=== PATIENT | female | born 1995 | race African-American/Black ===

== ENCOUNTER 2019-12-25 12:06 | Observation (INO) | payer SELFPAY ==
[~2019-12-25] VITALS: Ht 157.5 cm; Wt 61.2 kg
[2019-12-25] MEDS ORDERED: LACTATED RINGERS 1,000 ML IV SCH (13:26)
[2019-12-25] MEDS ORDERED: TERBUTALINE SULFATE 1MG/ML VIAL SUBCUT PRN (13:30)
[2019-12-25 14:54] LABS: CLARITY URINE CLEAR (CLEAR); COLOR URINE YELLOW (YELLOW); KETONES URINE 3+ (NEGATIVE); LEUKOCYTE ESTERASE URINE 1+ (NEGATIVE); NITRITE URINE NEGATIVE (NEGATIVE); OCCULT BLOOD URINE 3+ (NEGATIVE); PH URINE 6.5 (4.5-8.0); PROTEIN URINE 1+ (NEGATIVE); SPECIFIC GRAVITY URINE 1.026 (1.005-1.030)
[2020-01-12] MEDS ORDERED: IBUP-2030 MT (03:39)
[2020-01-12] MEDS ORDERED: HYDR-4001 PO (12:33)
== END 2019-12-25 18:15 | disposition home or self-care (01) ==
LOC: 8 EST LDRP 12:06
PROVIDERS: ADMIT Obstetrics & Gynecology; ATTEND Obstetrics & Gynecology
DX: O26.893 Other specified pregnancy related conditions, third trimester (principal); R10.9 Unspecified abdominal pain; R19.7 Diarrhea, unspecified; Z3A.37 37 weeks gestation of pregnancy
CPT/HCPCS: 76805; 76817; 76818; 81003; 96360; 96372; 99281; G0378; J3105

== ENCOUNTER 2020-01-07 07:48 | Observation (INO) | payer SELFPAY ==
[~2020-01-07] VITALS: Ht 157.5 cm; Wt 61.2 kg
[2020-01-07] MEDS ORDERED: PREN-55 PO (08:43)
== END 2020-01-07 10:00 | disposition home or self-care (01) ==
LOC: 8 EST LDRP 07:48
PROVIDERS: ADMIT Obstetrics & Gynecology; ATTEND Obstetrics & Gynecology
DX: O42.92 Full-term premature rupture of membranes, unspecified as to length of time between rupture and onset of labor (principal); O62.9 Abnormality of forces of labor, unspecified; O99.89 Other specified diseases and conditions complicating pregnancy, childbirth and the puerperium; M54.9 Dorsalgia, unspecified; Z3A.38 38 weeks gestation of pregnancy
CPT/HCPCS: 99281; G0378

== ENCOUNTER 2020-01-10 05:47 | Inpatient (IN) | payer SELFPAY ==
[~2020-01-10] VITALS: Ht 157.5 cm; Wt 61.2 kg
[~2020-01-10 05:47] MED LIST: PREN-55 PO
[2020-01-10] MEDS ORDERED: RHO(D) IMMUNE GLOBULIN 300 MCG/SYR IM SCH (06:00)
[2020-01-10] MEDS ORDERED: LACTATED RINGERS 1,000 ML IV SCH (06:15)
[2020-01-10] MEDS ORDERED: AMPICILLIN 2,000 MG in SODIUM CHLORIDE 0.9% 100 ML IV SCH (06:30)
[2020-01-10] MEDS ORDERED: MORPHINE SULFATE/PF 1MG/ML 10ML AMP ONE (06:41)
[2020-01-10] MEDS ORDERED: OXYTOCIN 10 UNITS/ML 1ML ONE (06:42)
[2020-01-10] MEDS ORDERED: EPHEDRINE SULFATE 50MG/ML VIAL ONE (06:47)
[2020-01-10] MEDS ORDERED: PHENYLEPHRINE HCL 10 MG/ML 1ML (IV VIAL) IV ONE (06:47)
[2020-01-10] MEDS ORDERED: SUCCINYLCHOLINE CHLORIDE 200MG/10ML IV ONE (06:47)
[2020-01-10] MEDS ORDERED: PROPOFOL 200MG/20ML VIAL IV ONE (06:47)
[2020-01-10] MEDS ORDERED: ONDANSETRON HCL 4MG/2ML INJ ONE (06:47)
[2020-01-10 06:48] LABS: INR 0.9; PROTHROMBIN TIME 9.4 sec (9.6-11.0)
[2020-01-10 06:49] LABS: CLARITY URINE CLOUDY (CLEAR); COLOR URINE YELLOW (YELLOW); KETONES URINE NEGATIVE (NEGATIVE); LEUKOCYTE ESTERASE URINE 3+ (NEGATIVE); NITRITE URINE NEGATIVE (NEGATIVE); OCCULT BLOOD URINE 2+ (NEGATIVE); PROTEIN URINE TRACE (NEGATIVE); SPECIFIC GRAVITY URINE 1.018 (1.005-1.030)
[2020-01-10 06:55] LABS: BASOPHILS % 0.7 % (0.0-2.0); HEMATOCRIT. 35.8 % (36.0-48.0); HEMOGLOBIN. 11.5 g/dL (12.0-16.0); LYMPHOCYTES % 20.7 % (20.0-50.0); MEAN CORPUSCULAR HEMOGLOBIN 25.7 pg (28.0-32.0); MEAN CORPUSCULAR VOLUME 79.6 fL (81.0-99.0); MEAN PLATELET VOLUME 9.3 fl (7.4-10.4); MONOCYTES % 7.4 % (2.0-8.0); NEUTROPHILS % 70.2 % (40.0-76.0); PLATELET 236 x1000/uL (130-400); RED CELL DISTRIBUTION WIDTH 15.2 % (11.6-14.6)
[2020-01-10 06:59] LABS: *AMPHETAMINES SCREEN URINE NEGATIVE (NEGATIVE); *BARBITURATES SCREEN URINE NEGATIVE (NEGATIVE)
[2020-01-10 07:00] LABS: *BENZODIAZEPINES SCREEN URINE NEGATIVE (NEGATIVE); *COCAINE SCREEN URINE NEGATIVE (NEGATIVE); METHADONE URINE SCREEN NEGATIVE (NEGATIVE); OPIATES URINE SCREEN NEGATIVE (NEGATIVE); PHENCYCLIDINE URINE SCREEN NEGATIVE (NEGATIVE)
[2020-01-10] MEDS: MAGNESIUM/ALUMINUM HYDROXIDE/SIMETHICONE 30ML UDC PO SCH ×2 (07:00→22:02)
[2020-01-10 07:02] LABS: CANNABINOID URINE SCREEN PRESUMTIVE POSITIVE (NEGATIVE)
[2020-01-10] MEDS ORDERED: KETOROLAC 60MG/2ML VIAL IM ONE (07:25)
[2020-01-10] MEDS ORDERED: DEXT 5%/LR + PITOCIN 20UNITS/L 1,000 ML IV SCH (07:33)
[2020-01-10] MEDS ORDERED: ONDANSETRON HCL 4MG/2ML INJ IV PRN (07:45)
[2020-01-10] MEDS ORDERED: BISACODYL 10MG SUPP PR PRN (07:45)
[2020-01-10] MEDS ORDERED: IBUPROFEN 400MG TABLET PO PRN (07:45)
[2020-01-10] MEDS ORDERED: DIPHENHYDRAMINE 25MG CAPSULE PO PRN (07:45)
[2020-01-10] MEDS ORDERED: HYDROCODONE/ACETAMINOPHEN 5/325MG TABLET PO PRN (07:45)
[2020-01-10] MEDS ORDERED: HEMORRHOIDAL SUPP PR PRN (07:45)
[2020-01-10] MEDS ORDERED: LANOLIN OINT 7GM TUBE TOP PRN (07:45)
[2020-01-10] MEDS ORDERED: NALOXONE HCL 0.4 MG/ML 1ML VIAL IV PRN (08:00)
[2020-01-10] MEDS ORDERED: BUTORPHANOL TARTRATE 2 MG/ML VIAL IV PRN (08:00)
[2020-01-10] MEDS ORDERED: DIPHENHYDRAMINE 50MG/ML VIAL IV PRN (08:00)
[2020-01-10] MEDS ORDERED: PRENATAL VIT/FE FUMARATE/FA TABLET PO SCH (09:00)
[2020-01-10 10:00] VITALS: BP 127/80
[2020-01-10 10:15] VITALS: BP 124/64
[2020-01-10 10:45] VITALS: BP 117/73
[2020-01-10] MEDS: KETOROLAC 30MG/ML VIAL IV SCH ×2 (12:19→20:34)
[2020-01-10 16:15] VITALS: BP 121/80
[2020-01-10 20:00] VITALS: BP 124/44
[2020-01-10] MEDS: DOCUSATE SODIUM 100MG CAPSULE PO SCH (22:00)
[2020-01-10] MEDS: SIMETHICONE 80MG TABLET CHEW PO SCH (22:00)
[2020-01-11] VITALS: BP 120/68
[2020-01-11] MEDS ORDERED: KETOROLAC 30MG/ML VIAL IV SCH (03:00)
[2020-01-11 04:00] VITALS: BP 121/74
[2020-01-11] MEDS: KETOROLAC 30MG/ML VIAL IV SCH (04:18)
[2020-01-11 06:36] LABS: BASOPHILS % 0.1 % (0.0-2.0); EOSINOPHILS % 0.4 % (0.0-5.0); HEMATOCRIT. 28.6 % (36.0-48.0); HEMOGLOBIN. 9.4 g/dL (12.0-16.0); LYMPHOCYTES % 13.1 % (20.0-50.0); MEAN CORPUSCULAR HEMOGLOBIN 25.9 pg (28.0-32.0); MEAN CORPUSCULAR VOLUME 78.9 fL (81.0-99.0); MEAN PLATELET VOLUME 8.7 fl (7.4-10.4); MONOCYTES % 7.3 % (2.0-8.0); NEUTROPHILS % 79.1 % (40.0-76.0); PLATELET 209 x1000/uL (130-400); RED BLOOD CELL COUNT 3.62 mill/uL (4.2-5.4); RED CELL DISTRIBUTION WIDTH 15.5 % (11.6-14.6)
[2020-01-11] MEDS ORDERED: FERROUS SULFATE 325MG TABLET PO SCH (07:30)
[2020-01-11 09:30] VITALS: BP 119/83
[2020-01-11] MEDS: MAGNESIUM/ALUMINUM HYDROXIDE/SIMETHICONE 30ML UDC PO SCH ×2 (10:31→16:49)
[2020-01-11] MEDS: SIMETHICONE 80MG TABLET CHEW PO SCH ×2 (10:32→16:50)
[2020-01-11] MEDS: IBUPROFEN 800MG TABLET PO PRN ×2 (10:33→16:48)
[2020-01-11 16:00] VITALS: BP 119/83
[2020-01-11 20:00] VITALS: BP 134/77
[2020-01-11] MEDS: DOCUSATE SODIUM 100MG CAPSULE PO SCH (20:33)
[2020-01-12] VITALS: BP 128/82
[2020-01-12] MEDS: IBUPROFEN 800MG TABLET PO PRN (01:18)
[2020-01-12] MEDS ORDERED: IBUP-2030 MT (03:39)
[2020-01-12 04:00] VITALS: BP 105/69
[2020-01-12 07:42] VITALS: BP 121/77
[2020-01-12] MEDS ORDERED: HYDR-4001 PO (12:33)
[2020-01-13 09:06] LABS: CANNABINOID CONFIRMATION URINE Positive (.)
== END 2020-01-12 08:50 | disposition home or self-care (01) | DRG 540 ==
LOC: 8 EST LDRP 05:47 → OBSVTOIN 05:47 → 8EST 09:43
PROVIDERS: ADMIT Obstetrics & Gynecology; ATTEND Obstetrics & Gynecology
PROC: 10D00Z1 Extraction of Products of Conception, Low, Open Approach (ICD-10-PCS; principal; 2020-01-10)
DX: O34.211 Maternal care for low transverse scar from previous cesarean delivery (principal); O42.92 Full-term premature rupture of membranes, unspecified as to length of time between rupture and onset of labor; O77.0 Labor and delivery complicated by meconium in amniotic fluid; O69.81X0 Labor and delivery complicated by cord around neck, without compression, not applicable or unspecified; Z3A.38 38 weeks gestation of pregnancy; Z37.0 Single live birth
CPT/HCPCS: 36415; 80305; 80349; 81003; 85025; 86592; 86703; 86850; 86900; 87340; 88307; 99281; J0290; J0330; J1200; J1885; J2274; J2370; J2405; J2590; J2704; J3490; J7050